=== PATIENT | female | born 2000 | race Caucasian/White ===

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

== ENCOUNTER 2022-03-03 21:18 | Emergency (ER) | payer OTHER ==
[~2022-03-03] VITALS: Ht 160 cm; Wt 68.0 kg
[2022-03-04] MEDS ORDERED: PHENAGIL TABLE1 EACH PO ×2 (02:22→02:23)
[2022-03-04] MEDS ORDERED: CORTISPORIN EAR10 M1 OPHT (02:22)
== END 2022-03-04 02:29 ==
LOC: EMR PED 21:18
DX: J02.9 Acute pharyngitis, unspecified (principal); J98.8 Other specified respiratory disorders; H60.92 Unspecified otitis externa, left ear; Z20.822 Contact with and (suspected) exposure to COVID-19

== ENCOUNTER 2023-12-10 20:13 | Emergency (ER) | payer OTHER ==
[~2023-12-10] VITALS: Ht 160 cm; Wt 74.8 kg
[~2023-12-10 20:13] MED LIST: CORTISPORIN EAR10 M1 OPHT; PHENAGIL TABLE1 EACH PO
[2023-12-10] MEDS ORDERED: ACETAMINOPHEN 500 MG GEL..CAP PO ONE ×2 (20:34→20:45)
[2023-12-10] MEDS ORDERED: DEXAMETHASONE SODIUM PHOSPHATE 4 MG/ML VIAL IM ONE (20:45)
[2023-12-10] MEDS ORDERED: GUAIFENESIN/DEXTROMETHORPHAN 10ML BLIST.PACK PO ONE ×2 (20:45→20:48)
[2023-12-10] MEDS ORDERED: DEXAMETHASONE SODIUM PHOSPHATE 4 MG/ML VIAL ONE (20:48)
[2023-12-10 21:22] LABS: HEMATOCRIT 37.9 % (36.0-45.00); MEAN CELL VOLUME 86.9 fL (80.00-100.00); MEAN CORPUSCULAR HEMOGLOBIN 29.9 pg (27.00-32.0); MEAN CORPUSCULAR HGB CONC 34.5 g/dl (32.0-36.0); PLATELET COUNT 191 K/uL (150-450); RED BLOOD COUNT 4.36 M/uL (4.00-6.00); RED CELL DISTRIBUTION WIDTH 12.7 % (11.5-14.5)
[2023-12-10] MEDS ORDERED: OSEL75CA PO (22:20)
[2023-12-10] MEDS ORDERED: DOLOGEN CAPLET1 EACH PO (22:20)
[2023-12-10] MEDS ORDERED: TUSNEL LIQUID178 ML PO (22:20)
== END 2023-12-10 22:23 | disposition home or self-care (01) ==
LOC: ER 20:14
PROVIDERS: General Practice
DX: J10.1 Influenza due to other identified influenza virus with other respiratory manifestations (principal); Z20.822 Contact with and (suspected) exposure to COVID-19

== ENCOUNTER → 2024-12-17 | Emergency (ER) | payer OTHER ==
[~2024-12-17] VITALS: Ht 160 cm; Wt 79.8 kg
[~2024-12-17] MED LIST changes: +ACETAMINOPHEN 500 MG GEL..CAP PO ONE; +DEXAMETHASONE SODIUM PHOSPHATE 4 MG/ML VIAL IV ONE; +DOLOGEN CAPLET1 EACH PO; +KETOROLAC TROMETHAMINE 30 MG VIAL IM ONE; +NAPROXEN500 MG PO; +OSEL75CA PO; +TUSNEL LIQUID178 ML PO
[2024-12-17 18:24] LABS: BASO % 1.0 % (0.1-1.2); EOS # 0.22 (0.04-0.54); EOS % 3.6 % (0.7-7.0); LYMPH # 2.03 (1.18-3.74); LYMPH % 33.7 % (19.3-53.1); MEAN PLATELET VOLUME 9.70 fl (9.4-12.4); MONO # 0.51 (0.24-0.82); MONO % 8.5 % (4.7-12.5); NEUT # 3.20 (1.56-6.13); NEUT % 53.0 % (34.0-71.1); RED CELL DISTRIBUTION WIDTH 12.2 % (11.6-14.4)
[2024-12-17 19:06] LABS: ALT/SGPT 23.0 U/L (12-78); AST/SGOT 14.0 U/L (15-37); BILIRUBIN TOTAL 0.86 mg/dL (0.3-1.2); BUN CREA RATIO 24.0 (7.0-25.0); CREATININE SERUM 0.79 mg/dL (0.55-1.02); GFR 91.0; GLOBULINA 3.2 G/DL (2.4-3.5); GLUCOSE FASTING 97.0 mg/dL (65-100); OSMOLALITY SERUM 285.0 MOSM/KG (275-295)
[2024-12-17 19:37] LABS: COVID-19 AG NEGATIVE (NEGATIVE)
== END | disposition home or self-care (01) ==
LOC: ER 15:08
PROVIDERS: Preventive Medicine Public Health & General Preventive Medicine
DX: G44.209 Tension-type headache, unspecified, not intractable (principal); Z20.822 Contact with and (suspected) exposure to COVID-19